=== PATIENT | female | born 1985 | race Caucasian/White ===

== ENCOUNTER 2017-06-30 14:17 | Emergency (ER) | payer OTHER ==
[~2017-06-30] VITALS: Ht 157.5 cm; Wt 103.9 kg
[2017-06-30 15:04] LABS: BILIRUBIN,URINE NEGATIVE (NEG); GLUCOSE,URINE NEGATIVE (NEG); NITRITE,URINE NEGATIVE (NEG); PROTEIN,URINE NEGATIVE (NEG-TRACE); UROBILINOGEN,URINE 0.2 mg/dL (0.2 mg/dL)
[2017-06-30 15:20] LABS: BACTERIA,URINE FEW /HPF (0-FEW); RBC,URINE 0 /HPF (0-2); SQUAMOUS EPITHELIAL CELL,UR FEW /LPF; WBC,URINE OCC /HPF (0-4)
--- NOTE | 2017-06-30 15:27 | PHYS DOC ---
Past Medical History Past Medical History: Hypertension, Other Additional Past Medical Histor: Hyperemesis Grav. Past Surgical History: Other Additional Past Surgical Histo: deviated septum repair, R wrist,neck injections c4-c7 Alcohol Use: None Drug Use: None Adult General Chief Complaint Chief Complaint: VOMITING IN HPI HPI Patient is a 31 year old female with history of -induced hypertension who presents today with nausea vomiting in . Patient states she found out 3 weeks ago she was . She states her cycles are irregular and the last time she had her cycle was in April. She states she is a 1 para 1. She states the last time she was was 7 years ago and has been trying to be for the last 7 years. Patient states she has an appointment with her SILVERER July 13, 2017. Patient denies any abdominal pain that is requesting an ultrasound. Denies any vaginal bleeding. Review of Systems Review of Systems Constitutional: Denies fever or chills [] Eyes: Denies change in visual acuity, redness, or eye pain [] HENT: Denies nasal congestion or sore throat [] Respiratory: Denies cough or shortness of breath [] Cardiovascular: No additional information not addressed in HPI [] GI: Reports nausea vomiting, denies abdominal pain bloody stools or diarrhea [] : Denies dysuria or hematuria [] Musculoskeletal: Denies back pain or joint pain [] Integument: Denies rash or skin lesions [] Neurologic: Denies headache, focal weakness or sensory changes [] Endocrine: Denies polyuria or polydipsia [] All other systems were reviewed and found to be within normal limits, except as documented in this note. Current Medications Current Medications Current Medications Medications (Trade) Dose Ordered Sig/Aditi Start Time Stop Time Status Last Admin Dose Admin Ondansetron HCl (Zofran) 8 mg 1X ONCE 06/30/17 15:30 06/30/17 15:31 DC 06/30/17 15:30 8 MG Sodium Chloride 1,000 ml @ 1,000 mls/hr 1X ONCE 06/30/17 15:30 06/30/17 16:29 DC 06/30/17 15:30 1,000 MLS/HR Allergies Allergies Allergies Coded Allergies Type Severity Reaction Last Updated Verified Latex, Natural Rubber Allergy Mild Rash 06/30/17 Yes Physical Exam Physical Exam Constitutional: Well developed, well nourished, no acute distress, non-toxic appearance. [] HENT: Normocephalic, atraumatic, bilateral external ears normal, oropharynx moist, no oral exudates, nose normal. [] Eyes: PERRLA, EOMI, conjunctiva normal, no discharge. [] Neck: Normal range of motion, no tenderness, supple, no stridor. [] Cardiovascular:Heart rate regular rhythm, no murmur [] Lungs & Thorax: Bilateral breath sounds clear to auscultation [] Abdomen: Bowel sounds normal, soft, no tenderness, no masses, no pulsatile masses. [] Skin: Warm, dry, no erythema, no rash. [] Back: No tenderness, no CVA tenderness. [] Extremities: No tenderness, no cyanosis, no clubbing, ROM intact, no edema. [] Neurologic: Alert and oriented X 3, normal motor function, normal sensory function, no focal deficits noted. [] Psychologic: Affect normal, judgement normal, mood normal. [] Current Patient Data Vital Signs Vital Signs Date Time Temp Pulse Resp B/P (MAP) Pulse Ox O2 Delivery O2 Flow Rate FiO2 06/30/17 14:41 98.2 81 20 143/91 (108) 99 Room Air 98.2 Lab Values Laboratory Tests Test 06/30/17 14:46 06/30/17 14:47 06/30/17 15:30 Urine Collection Type Unknown Urine Color Yellow Urine Clarity Clear Urine pH 7.0 Urine Specific [place] 1.020 Urine Protein Negative mg/dL (NEG-TRACE) Urine Glucose (UA) Negative mg/dL (NEG) Urine Ketones (Stick) Negative mg/dL (NEG) Urine Blood Negative (NEG) Urine Nitrite Negative (NEG) Urine Bilirubin Negative (NEG) Urine Urobilinogen Dipstick 0.2 mg/dL (0.2 mg/dL) Urine Leukocyte Esterase Negative (NEG) Urine RBC 0 /HPF (0-2) Urine WBC Occ /HPF (0-4) Urine Squamous Epithelial Cells Few /LPF Urine Bacteria Few /HPF (0-FEW) Urine Mucus Marked /LPF POC Urine HCG, Qualitative Hcg positive (Negative) White Blood Count 11.0 x10^3/uL (4.0-11.0) Red Blood Count 4.85 x10^6/uL (3.50-5.40) Hemoglobin 13.6 g/dL (12.0-15.5) Hematocrit 41.2 % (36.0-47.0) Mean Corpuscular Volume 85 fL (79-100) Mean Corpuscular Hemoglobin 28 pg (25-35) Mean Corpuscular Hemoglobin Concent 33 g/dL (31-37) Red Cell Distribution Width 13.5 % (11.5-14.5) Platelet Count 287 x10^3/uL (140-400) Neutrophils (%) (Auto) 72 % (31-73) Lymphocytes (%) (Auto) 21 % (24-48) L Monocytes (%) (Auto) 6 % (0-9) Eosinophils (%) (Auto) 1 % (0-3) Basophils (%) (Auto) 1 % (0-3) Neutrophils # (Auto) 7.9 x10^3uL (1.8-7.7) H Lymphocytes # (Auto) 2.3 x10^3/uL (1.0-4.8) Monocytes # (Auto) 0.7 x10^3/uL (0.0-1.1) Eosinophils # (Auto) 0.1 x10^3/uL (0.0-0.7) Basophils # (Auto) 0.1 x10^3/uL (0.0-0.2) Maternal Serum HCG Beta Subunit 94380 mIU/mL (0-5) H Sodium Level 139 mmol/L (136-145) Potassium Level 3.6 mmol/L (3.5-5.1) Chloride Level 104 mmol/L (98-107) Carbon Dioxide Level 25 mmol/L (21-32) Anion Gap 10 (6-14) Blood Urea Nitrogen 10 mg/dL (7-20) Creatinine 0.7 mg/dL (0.6-1.0) Estimated GFR (Cockcroft-Gault) 98.9 BUN/Creatinine Ratio 14 (6-20) Glucose Level 83 mg/dL (70-99) Calcium Level 9.3 mg/dL (8.5-10.1) Total Bilirubin 0.6 mg/dL (0.2-1.0) Aspartate Amino Transferase (AST) 12 U/L (15-37) L Alanine Aminotransferase (ALT) 20 U/L (14-59) Alkaline Phosphatase 65 U/L (46-116) Total Protein 7.2 g/dL (6.4-8.2) Albumin 3.6 g/dL (3.4-5.0) Albumin/Globulin Ratio 1.0 (1.0-1.7) Lipase 72 U/L (73-393) L Laboratory Tests 06/30/17 15:30 Laboratory Tests 06/30/17 15:30 EKG EKG [] Radiology/Procedures Radiology/Procedures []PROCEDURE: OB <14 WKS W/TV Obstetrical ultrasound, 06/30/2017: History: , abdominal pain and discomfort Transabdominal and transvaginal scans were obtained. The uterus is poorly defined on the transabdominal scans. The transvaginal scans demonstrate an intrauterine gestational sac. It contains a pole demonstrating a crown-rump length of 8 mm. This is compatible with a gestational age of 6-7 weeks yielding a sonographic EDC of 02/18/2018. cardiac activity is evident with a heart rate of 139 bpm. No subchorionic hemorrhage is seen. There is an area of slightly increased echogenicity in the myometrium in the anterior fundal region. The appearance suggests a fibroid measuring approximately 4 cm in greatest diameter. The ovaries are of normal size. There is a 1.9 cm slightly hyperechoic nodule in the left ovary. This is probably a hemorrhagic cyst. Blood flow is present in both ovaries. The adnexal regions are otherwise unremarkable. IMPRESSION: 1. Viable intrauterine of 6-7 weeks gestational age. 2. Small uterine fibroid. 3. Small left ovarian nodule which is probably a hemorrhagic cyst. DICTATED and SIGNED BY: JOYCELYN BUI MD DATE: 06/30/17 3881 CC: ANA LILIA MIJARES APRN; NON,STAFF; STEPHEN MAJANO MD ~ Course & Med Decision Making Course & Med Decision Making Pertinent Labs and Imaging studies reviewed. (See chart for details) This is a 31-year-old female patient 1 para 1 who presents today with nausea and vomiting in . Her last menstrual cycle was in April 2017 and she states her cycles are irregular. She has an appointment with her OB /CHECKOUT SUPERVISOR on July 13, 2017. Positive urine hCG. OB ultrasound, Viable intrauterine of 6-7 weeks gestational age. Small uterine fibroid. Small left ovarian nodule which is probably a hemorrhagic cyst. Patient was given Zofran 1 L of IV fluid with very good relief of her symptoms. She was discharged with Zofran and promethazine. She has an OB appointment July 13, 2017. She is provided return precautions and discharged in stable condition. Dragon Disclaimer Dragon Disclaimer This electronic medical record was generated, in whole or in part, using a voice recognition dictation system. Departure Departure Impression: Primary Impression: Hyperemesis gravidarum Disposition: HOME, SELF-CARE Condition: STABLE Referrals: STEPHEN MAJANO MD (PCP) Follow-up with your SILVERER as scheduled on July 13 Patient Instructions: Diet - Hyperemesis Gravidarum, Hyperemesis Gravidarum Additional Instructions: You were seen with nausea vomiting in . Take Zofran and promethazine as needed for nausea vomiting. Push fluids. Follow-up with her SILVERER on July 13, 2017. Scripts Promethazine Hcl (PROMETHAZINE HCL) 25 Mg Tablet 1 TAB PO PRN Q6HRS, #30 TAB Prov: ANA LILIA MIJARES APRN 06/30/17 Ondansetron (ZOFRAN ODT) 4 Mg Tab.rapdis 1 TAB SL Q8HRS, #30 TAB Prov: ANA LILIA MIJARES PAN OPERATOR 06/30/17 ANA LILIA MIJARES APRN Jun 30, 2017 15:27
[2017-06-30] MEDS ORDERED: ONDANSETRON PF 4 MG/2 ML VIAL. IV ONE (15:30)
[2017-06-30] MEDS ORDERED: IV NORMAL SALINE 1000ML BAG 1,000 ML IV ONE (15:30)
[2017-06-30 15:37] LABS: BASO # 0.1 x10^3/uL (0.0-0.2); BASO % 1 % (0-3); EOS % 1 % (0-3); HEMATOCRIT 41.2 % (36.0-47.0); HEMOGLOBIN 13.6 g/dL (12.0-15.5); LYMPH # 2.3 x10^3/uL (1.0-4.8); LYMPH % 21 % (24-48); MEAN CORPUSCULAR HEMOGLOBIN 28 pg (25-35); MEAN CORPUSCULAR HGB CONC 33 g/dL (31-37); MEAN CORPUSCULAR VOLUME 85 fL (79-100); MONO % 6 % (0-9); NEUT % 72 % (31-73); PLATELET COUNT 287 x10^3/uL (140-400); RED BLOOD COUNT 4.85 x10^6/uL (3.50-5.40); RED CELL DISTRIBUTION WIDTH 13.5 % (11.5-14.5)
[2017-06-30 16:01] LABS: CALCIUM 9.3 mg/dL (8.5-10.1); CREATININE 0.7 mg/dL (0.6-1.0); GFR 98.9; POTASSIUM 3.6 mmol/L (3.5-5.1)
[2017-06-30 16:08] LABS: ALBUMIN 3.6 g/dL (3.4-5.0); TOTAL BILIRUBIN 0.6 mg/dL (0.2-1.0); TOTAL PROTEIN 7.2 g/dL (6.4-8.2)
--- NOTE | 2017-06-30 16:24 | RAD ---
Obstetrical ultrasound, 06/30/2017: History: , abdominal pain and discomfort Transabdominal and transvaginal scans were obtained. The uterus is poorly defined on the transabdominal scans. The transvaginal scans demonstrate an intrauterine gestational sac. It contains a pole demonstrating a crown-rump length of 8 mm. This is compatible with a gestational age of 6-7 weeks yielding a sonographic EDC of 02/18/2018. cardiac activity is evident with a heart rate of 139 bpm. No subchorionic hemorrhage is seen. There is an area of slightly increased echogenicity in the myometrium in the anterior fundal region. The appearance suggests a fibroid measuring approximately 4 cm in greatest diameter. The ovaries are of normal size. There is a 1.9 cm slightly hyperechoic nodule in the left ovary. This is probably a hemorrhagic cyst. Blood flow is present in both ovaries. The adnexal regions are otherwise unremarkable. IMPRESSION: 1. Viable intrauterine of 6-7 weeks gestational age. 2. Small uterine fibroid. 3. Small left ovarian nodule which is probably a hemorrhagic cyst.
[2017-06-30] MEDS ORDERED: ONDA4TAB10 SL (16:45)
[2017-06-30] MEDS ORDERED: PROM25TA10 PO (16:45)
[2017-06-30 16:55] VITALS: BP 132/75
== END 2017-06-30 16:57 | disposition home or self-care (01) ==
LOC: ER 14:17
DX: O21.0 Mild hyperemesis gravidarum (principal); O16.1 Unspecified maternal hypertension, first trimester; Z91.040 Latex allergy status; Z3A.01 Less than 8 weeks gestation of pregnancy
CPT/HCPCS: 36415; 76801; 76817; 80053; 81001; 81025; 83690; 84702; 85025; 96361; 96374; 99285; J2405; J7030

== ENCOUNTER 2017-08-12 16:52 | Emergency (ER) | payer OTHER ==
[2017-08-12 17:12] LABS: URINE HCG POC HCG POSITIVE (Negative)
[2017-08-12 17:31] LABS: ANION GAP 12 (6-14); BLOOD UREA NITROGEN 10 mg/dL (7-20); CALCIUM 8.8 mg/dL (8.5-10.1); CARBON DIOXIDE 22 mmol/L (21-32); CHLORIDE 104 mmol/L (98-107); CREATININE 0.5 mg/dL (0.6-1.0); GFR 144.9; GLUCOSE 85 mg/dL (70-99); POTASSIUM 3.7 mmol/L (3.5-5.1); SODIUM 138 mmol/L (136-145)
[2017-08-12] MEDS: ONDANSETRON PF 4 MG/2 ML VIAL. IV (17:35)
[2017-08-12] MEDS: IV NORMAL SALINE 1000ML BAG 1,000 ML IV ×2 (17:35→18:42)
== END 2017-08-12 19:49 | disposition home or self-care (01) ==
LOC: ER 16:52
DX: O21.1 Hyperemesis gravidarum with metabolic disturbance (principal); E86.0 Dehydration; O16.1 Unspecified maternal hypertension, first trimester; Z91.040 Latex allergy status; Z3A.13 13 weeks gestation of pregnancy
CPT/HCPCS: 36415; 80048; 81025; 96361; 96374; 99285-25; J2405; J7030